=== PATIENT | male | born 1995 | race Two or more races ===

== ENCOUNTER 2019-07-28 09:45 | Emergency (ER) | payer OTHER ==
[~2019-07-28] VITALS: Ht 165.1 cm; Wt 54.5 kg
[~2019-07-28 09:45] MED LIST: CYCL10TA PO; IBUP-1022 PO
[2019-07-28] MEDS ORDERED: APAP325T4 PO (09:53)
[2019-07-28] MEDS ORDERED: [UNRECOGNIZED DRUG - CODE] MT (09:53)
[2019-07-28] MEDS ORDERED: ONDA4TAB6 PO (09:53)
[2019-07-28 10:28] LABS: BASO % 0.4 % (0.0-1.0); EOS % 0.4 % (0.0-3.0); HEMATOCRIT 44.7 % (42.0-52.0); LYMPH # 1.4 10^3/uL (1.5-5.0); LYMPH % 19.1 % (24.0-44.0); MEAN CORPUSCULAR HEMOGLOBIN 30.5 pg (27.0-33.0); MEAN CORPUSCULAR HGB CONC 33.6 g/dl (32.0-36.5); MEAN CORPUSCULAR VOLUME 90.9 fl (80.0-96.0); MONO # 0.4 10^3/uL (0.0-0.8); MONO % 5.9 % (0.0-5.0); NEUTROPHILS # 5.5 10^3/uL (1.5-8.5); NEUTROPHILS % 73.8 % (36.0-66.0); PLATELET COUNT, AUTOMATED 303 10^3/uL (150-450); RED BLOOD COUNT 4.92 10^6/uL (4.30-6.10); WHITE BLOOD COUNT 7.5 10^3/uL (4.0-10.0)
[2019-07-28] MEDS ORDERED: NS 1,000 ML IV ONE (10:30)
[2019-07-28] MEDS ORDERED: KETOROLAC 30 MG/ML VIAL (J1885) IV ONE (10:30)
[2019-07-28] MEDS ORDERED: ONDANSETRON 4MG/2ML VIAL (J2405) IV ONE (10:30)
[2019-07-28 11:00] LABS: ALBUMIN 4.1 GM/DL (3.2-5.2); BILIRUBIN,DIRECT 0.2 MG/DL (0.0-0.2); BILIRUBIN,TOTAL 0.8 MG/DL (0.2-1.0); TOTAL PROTEIN 8.5 GM/DL (6.4-8.2)
--- NOTE | 2019-07-28 11:22 | REP ---
CHEST, TWO VIEWS: There is no evidence of acute infiltrate. No pleural effusion is seen. The heart is normal in size. The mediastinal silhouette is unremarkable. The visualized osseous structures are intact. IMPRESSION: No acute pulmonary disease. Electronically Signed by Jorge Gustafson MD 07/28/2019 04:05 P
[2019-07-28] MEDS ORDERED: ISOVUE-370 76% 100ML VIAL (Q9967) As Ordered ONE (11:32)
--- NOTE | 2019-07-28 12:36 | REP ---
CT ABDOMEN AND PELVIS WITH IV CONTRAST: TECHNIQUE: Axial contrast enhanced images from the lung bases to the pubic symphysis using 100 mL Isovue 370 intravenous contrast material with multiplanar reformations. In the visualized lung bases, there is a left lower lobe calcified granuloma. The liver, spleen, adrenals, pancreas and kidneys are unremarkable. There is no hydronephrosis bilaterally. There is no abdominal aortic aneurysm. No adenopathy is seen. No free air or free fluid is seen. No bowel wall thickening is seen. The appendix is normal. No pelvic mass is seen. Urinary bladder is mildly distended and appears unremarkable. No anterior abdominal wall defect is seen. IMPRESSION: No acute abnormality is detected. No evidence of appendicitis, free air or free fluid. Electronically Signed by Jorge Gustafson MD 07/28/2019 04:22 P
[2019-07-28 13:36] VITALS: BP 103/60
== END 2019-07-28 14:00 | disposition home or self-care (01) ==
LOC: M ED 09:45
DX: B34.9 Viral infection, unspecified (principal); R10.32 Left lower quadrant pain; F17.210 Nicotine dependence, cigarettes, uncomplicated; Z79.899 Other long term (current) drug therapy
CPT/HCPCS: 71046; 74177; 80047; 80076; 81001; 83690; 85025; 96361; 96374; 96375; 99284; J1885; J2405; Q9967

== ENCOUNTER 2020-04-26 20:17 | Emergency (ER) | payer OTHER ==
[~2020-04-26] VITALS: Ht 167.6 cm; Wt 57.0 kg
[~2020-04-26 20:17] MED LIST changes: +APAP325T4 PO; +CYCL-707 PO; -CYCL10TA PO; +ONDA4TAB6 PO; +[UNRECOGNIZED DRUG - CODE] MT
[2020-04-26] MEDS ORDERED: MUCI30TA5 PO (20:27)
[2020-04-26] MEDS ORDERED: PSEUDOEPHEDRINE 30 MG TAB PO STA (21:23)
[2020-04-26] MEDS ORDERED: MAGIC MOUTHWASH SUSPENSION BTL SS STA (21:23)
[2020-04-26] MEDS ORDERED: IBUPROFEN 600MG TAB PO ONE (21:30)
[2020-04-26] MEDS ORDERED: BENZONATATE 100 MG CAP PO ONE (21:30)
--- NOTE | 2020-04-26 22:59 | REPVR ---
PROCEDURE INFORMATION: Exam: XR Chest, 2 Views Exam date and time: 04/26/2020 10:49 PM Age: 25 years old Clinical indication: Other: Cough; Additional info: Cough, sore throat, rhinorrhea TECHNIQUE: Imaging protocol: XR of the chest Views: 2 views. COMPARISON: CR Chest, 2 view PA, Lat 07/28/2019 10:57 AM FINDINGS: Lungs: Unremarkable. No consolidation. Pleural space: Unremarkable. No pleural effusion. No pneumothorax. Heart/Mediastinum: Unremarkable. No cardiomegaly. Bones/joints: Unremarkable. IMPRESSION: No acute findings. Electronically signed by: Clifton Mon On 04/26/2020 22:59:29 PM
[2020-04-26] MEDS ORDERED: PSEU120T19 PO (23:23)
[2020-04-26] MEDS ORDERED: IBUP-1022 PO (23:23)
[2020-04-26] MEDS ORDERED: FLON1SPR NARES (23:23)
[2020-04-26] MEDS ORDERED: MAGICMW SSP (23:23)
[2020-04-26 23:30] VITALS: BP 128/70
== END 2020-04-26 23:31 | disposition home or self-care (01) ==
LOC: M ED 20:17
DX: J06.9 Acute upper respiratory infection, unspecified (principal); Z79.899 Other long term (current) drug therapy
CPT/HCPCS: 71046; 87880; 99284; U0002

== ENCOUNTER → 2023-06-19 | Outpatient (CLI) | payer OTHER ==
[~2023-06-19] MED LIST changes: +FLON1SPR NARES; +MAGICMW SSP; +MUCI30TA5 PO; +PSEU120T19 PO
== END ==
LOC: M SLEEP 20:00
PROVIDERS: ATTEND Nurse Practitioner Family
DX: G47.33 Obstructive sleep apnea (adult) (pediatric) (principal)

== ENCOUNTER → 2023-10-29 | Outpatient (CLI) | payer OTHER | LOC: M SLEEP 20:00 | PROVIDERS: ATTEND Nurse Practitioner Family | DX: G47.9 Sleep disorder, unspecified (principal) ==

== ENCOUNTER 2023-11-19 19:18 | Emergency (ER) | payer OTHER ==
[~2023-11-19] VITALS: Ht 165.1 cm; Wt 58.8 kg
[2023-11-19] MEDS ORDERED: MELO15TA28 PO (19:37)
[2023-11-20] MEDS: ACETAMINOPHEN 325 MG TAB PO ONE (00:54)
[2023-11-20] MEDS: KETOROLAC 30 MG/ML 1ML VIAL IM ONE (00:54)
[2023-11-20 01:33] LABS: RSV AMPLIFICATION NEGATIVE (NEGATIVE)
[2023-11-20] MEDS ORDERED: AMOX875T PO (01:38)
[2023-11-20] MEDS ORDERED: KETO10TAB PO (01:38)
[2023-11-20] MEDS: AMOXICILLIN 500 MG CAP PO ONE (01:41)
[2023-11-20 01:45] VITALS: BP 109/52; TEMP 99.3; O2SAT 100
== END 2023-11-20 01:46 | disposition home or self-care (01) ==
LOC: M ED 19:18
DX: J02.0 Streptococcal pharyngitis (principal); R51.9 Headache, unspecified; F17.200 Nicotine dependence, unspecified, uncomplicated; Z79.2 Long term (current) use of antibiotics; Z79.1 Long term (current) use of non-steroidal anti-inflammatories (NSAID); Z79.899 Other long term (current) drug therapy
CPT/HCPCS: 87631; 96372; 99283; J1885

== ENCOUNTER 2024-02-06 10:46 | Day surgery (SDC) | payer OTHER ==
[~2024-02-06] VITALS: Ht 165.1 cm; Wt 55.6 kg
[~2024-02-06 10:46] MED LIST changes: +AMOX875T PO; +KETO10TAB PO; +MELO15TA28 PO; +OMEP-173 PO; +ONDA-282 PO; -ONDA4TAB6 PO
[2024-02-06] MEDS: NS 1,000 ML IV ONE (11:54)
[2024-02-06] MEDS ORDERED: propofoL 500 MG/50 ML VIAL As Ordered ONE (12:00)
[2024-02-06] MEDS ORDERED: LIDOCAINE 2% 100MG/5ML SDV (FOR ANES.) As Ordered ONE (13:21)
[2024-02-06] MEDS ORDERED: fentaNYL 100 MCG/2 ML INJECTION As Ordered ONE (13:23)
[2024-02-06 14:18] VITALS: TEMP 98
[2024-02-06 14:39] VITALS: BP 108/62; O2SAT 100
== END 2024-02-06 14:45 | disposition home or self-care (01) ==
LOC: M OPP 10:46
PROVIDERS: ATTEND Internal Medicine Gastroenterology
DX: K92.1 Melena (principal); K64.8 Other hemorrhoids; K57.30 Diverticulosis of large intestine without perforation or abscess without bleeding; K60.2 Anal fissure, unspecified; K62.89 Other specified diseases of anus and rectum; K31.89 Other diseases of stomach and duodenum; G47.30 Sleep apnea, unspecified; F17.290 Nicotine dependence, other tobacco product, uncomplicated; Z79.1 Long term (current) use of non-steroidal anti-inflammatories (NSAID); Z79.899 Other long term (current) drug therapy
CPT/HCPCS: 43239; 45378; 88305; J3010